=== PATIENT | female | born 1960 | race Caucasian/White ===

== ENCOUNTER 2018-06-04 08:16 | Outpatient (CLI) | payer OTHER | END 2018-06-04 08:17 | disposition home or self-care (01) | LOC: BICMAMMO 08:16 | PROVIDERS: ATTEND Obstetrics & Gynecology | DX: Z12.31 Encounter for screening mammogram for malignant neoplasm of breast (principal); Z85.3 Personal history of malignant neoplasm of breast | CPT/HCPCS: 77067 ==

== ENCOUNTER 2023-09-16 07:27 | Outpatient (CLI) | payer OTHER ==
[2023-09-16] MEDS ORDERED: Regadenoson 0.4 MG/5 ML SYRINGE ONE (09:05)
== END 2023-09-16 07:28 | disposition home or self-care (01) ==
LOC: NM 07:27
PROVIDERS: ATTEND Nurse Practitioner
DX: I25.6 Silent myocardial ischemia (principal)
CPT/HCPCS: 78452; 93017; A9502; J2785